=== PATIENT | male | born 1985 | race American Indian/Alaskan Native ===

== ENCOUNTER 2016-09-17 16:32 | Emergency (ER) | payer SELFPAY ==
[2016-09-17 16:54] VITALS: BP 158/95
[2016-09-17 18:10] LABS: Alanine Aminotransferase 16 units/L (7-56); Albumin 4.9 g/dL (3.9-5); Albumin/Globulin Ratio 1.4 %; Alkaline Phosphatase 49 units/L (35-129); Anion Gap 20 mmol/L; BUN/Creatinine Ratio 11.11; Blood Urea Nitrogen 10 mg/dL (9-20); Calcium 9.6 mg/dL (8.4-10.2); Carbon Dioxide 26 mmol/L (22-30); Chloride 96.5 mmol/L (98-107); Glucose 74 mg/dL (75-100); Lipase 12 units/L (13-60); Sodium 138 mmol/L (137-145); Total Protein 8.4 g/dL (6.3-8.2)
[2016-09-17 18:21] LABS: Mean Corpuscular HGB Conc 31 % (32-34); Mean Corpuscular Hemoglobin 30 pg (28-32); Mean Corpuscular Volume 95 fl (84-94); Platelet Count 178 K/mm3 (140-440); Red Blood Count 5.42 M/mm3 (3.65-5.03); Red Cell Distribution Width 14.2 % (13.2-15.2); White Blood Count 5.3 K/mm3 (4.5-11.0)
[2016-09-17 18:23] LABS: Hematocrit 51.6 % (35.5-45.6); Hemoglobin 16.1 gm/dl (11.8-15.2)
--- NOTE | 2016-09-18 10:55 | ED Elopement Review ---
ED Pt Elopement review - Results review Lab results: Laboratory Tests 09/17/16 09/17/16 17:07 17:07 WBC 5.3 RBC 5.42 H Hgb 16.1 H Hct 51.6 H MCV 95 H MCH 30 MCHC 31 L RDW 14.2 Plt Count 178 Lymph % (Auto) Acct Exec [place] % (Auto) Acct Exec Eos % (Auto) Acct Exec Baso % (Auto) Acct Exec Lymph # Acct Exec [place] # Acct Exec Eos # Acct Exec Baso # Acct Exec Seg Neutrophils % Acct Exec Seg Neutrophils # Acct Exec Sodium 138 Potassium 4.0 Chloride 96.5 L Carbon Dioxide 26 Anion Gap 20 BUN 10 Creatinine 0.9 Estimated GFR > 60 BUN/Creatinine Ratio 11.11 Glucose 74 L Calcium 9.6 Total Bilirubin 0.80 AST 22 ALT 16 Alkaline Phosphatase 49 Total Protein 8.4 H Albumin 4.9 Albumin/Globulin Ratio 1.4 Lipase 12 L - Call Back decision Pt Call Back Decision: Pt to F/U with PMD
== END 2016-09-18 02:30 | disposition left against medical advice (07) ==
LOC: ED 16:32
DX: R10.9 Unspecified abdominal pain (principal); R07.9 Chest pain, unspecified; R11.2 Nausea with vomiting, unspecified; Z53.21 Procedure and treatment not carried out due to patient leaving prior to being seen by health care provider
CPT/HCPCS: 36415; 80053; 83690; 85025

== ENCOUNTER 2016-09-18 11:26 | Emergency (ER) | payer SELFPAY ==
[2016-09-18 12:36] LABS: Basophils % (Auto) 1.3 % (0.0-1.8); Eosinophils % (Auto) 0.4 % (0.0-4.3); Hematocrit 49.8 % (35.5-45.6); Hemoglobin 16.2 gm/dl (11.8-15.2); Mean Corpuscular HGB Conc 33 % (32-34); Mean Corpuscular Hemoglobin 30 pg (28-32); Mean Corpuscular Volume 91 fl (84-94); Platelet Count 181 K/mm3 (140-440); Red Blood Count 5.46 M/mm3 (3.65-5.03); Red Cell Distribution Width 13.5 % (13.2-15.2); White Blood Count 3.7 K/mm3 (4.5-11.0)
[2016-09-18 12:49] LABS: Anion Gap 14 mmol/L; Blood Urea Nitrogen 9 mg/dL (9-20); Calcium 9.6 mg/dL (8.4-10.2); Carbon Dioxide 30 mmol/L (22-30); Chloride 96.7 mmol/L (98-107); Glucose 97 mg/dL (75-100); Potassium 4.3 mmol/L (3.6-5.0); Sodium 136 mmol/L (137-145)
[2016-09-18] MEDS ORDERED: MORPHINE IV ONE (18:55)
[2016-09-18] MEDS ORDERED: ZOFRAN IV ONE (18:55)
[2016-09-18] MEDS ORDERED: PEPCID IV ONE (18:55)
--- NOTE | 2016-09-18 19:03 | Emergency Department Report ---
HPI - General Chief Complaint: Chest Pain Time Seen by Provider: 09/18/16 18:45 - HPI HPI: Room 3 The patient is a 31-year-old male presenting with a chief complaint of chest pain. The patient states for 3 days she has had a constant substernal chest pain has been sore in nature. The patient states the pain increases whenever he becomes. Patient missed pleurisy. Patient denies shortness of breath but does admit to nausea vomiting and diaphoresis. The patient states she's been vomiting for the past 3 days yellow vomitus. The patient states today he had one episode of hematemesis immediately followed by more emesis of yellow vomitus. The patient currently gives his pain a score of 8/10. Patient states he's never had a stress test or cardiac catheterization Location: Chest Duration: 3 days Quality: Sharp/soreness Severity:8/10 Modifying factors: [see above] Context: [see above] Mode of transportation: [not driving] ED Past Medical Hx - Past Medical History Previous Medical History?: No - Surgical History Past Surgical History?: No - Family History Family history: no significant - Social History Smoking Status: Never Smoker Substance Use Type: None (denies illicit drug use) - Medications Home Medications: Home Medications Medication Instructions Recorded Confirmed Last Taken Type Famotidine [Pepcid] 20 mg PO BID #30 tablet 09/18/16 Unknown Rx ED Review of Systems ROS: Stated complaint: CHEST PAIN/VOMITING BLOOD Other details as noted in HPI Comment: All other systems reviewed and negative Constitutional: diaphoresis Eyes: denies: eye pain, eye discharge, vision change ENT: denies: ear pain, throat pain Respiratory: denies: shortness of breath Cardiovascular: chest pain Endocrine: no symptoms reported Gastrointestinal: nausea, vomiting, hematemesis Genitourinary: denies: urgency, dysuria Musculoskeletal: denies: back pain, joint swelling, arthralgia Skin: denies: rash, lesions Neurological: denies: headache, weakness, paresthesias Psychiatric: denies: anxiety, depression Hematological/Lymphatic: denies: easy bleeding, easy bruising Physical Exam - Physical Exam Vital Signs: Vital Signs 09/18/16 09/18/16 11:53 16:05 Temperature 98.1 F 98.6 F Pulse Rate 94 H 80 Respiratory 16 18 Rate Blood Pressure 156/103 Blood Pressure 187/98 [Left] O2 Sat by Pulse 100 100 Oximetry Physical Exam: GENERAL: The patient is well-developed well-nourished male lying on stretcher not appearing to be in acute distress. [] HEENT: Normocephalic. Atraumatic. Extraocular motions are intact. Patient has moist mucous membranes. NECK: Supple. Trachea midline CHEST/LUNGS: Clear to auscultation. There is no respiratory distress noted. HEART/CARDIOVASCULAR: Regular. There is no tachycardia. There is no gallop rub or murmur. ABDOMEN: Abdomen is soft, with mild discomfort to palpation in the epigastric region. Patient has normal bowel sounds. There is no abdominal distention. SKIN: There is no rash. There is no edema. There is no diaphoresis. NEURO: The patient is awake, alert, and oriented. The patient is cooperative. The patient has normal speech MUSCULOSKELETAL: There is no evidence of acute injury. ED Course Vital Signs 09/18/16 09/18/16 11:53 16:05 Temperature 98.1 F 98.6 F Pulse Rate 94 H 80 Respiratory 16 18 Rate Blood Pressure 156/103 Blood Pressure 187/98 [Left] O2 Sat by Pulse 100 100 Oximetry ED Medical Decision Making - Lab Data Result diagrams: 09/18/16 12:08 09/18/16 12:08 Laboratory Tests 09/18/16 09/18/16 09/18/16 12:08 12:08 14:17 WBC 3.7 L RBC 5.46 H Hgb 16.2 H Hct 49.8 H MCV 91 D MCH 30 MCHC 33 RDW 13.5 Plt Count 181 Lymph % (Auto) 34.5 [place] % (Auto) 5.3 Eos % (Auto) 0.4 Baso % (Auto) 1.3 Lymph # 1.3 [place] # 0.2 Eos # 0.0 Baso # 0.0 Seg Neutrophils % 58.5 Seg Neutrophils # 2.2 D-Dimer Sodium 136 L Potassium 4.3 Chloride 96.7 L Carbon Dioxide 30 Anion Gap 14 BUN 9 Creatinine 1.0 Estimated GFR > 60 BUN/Creatinine Ratio 9.00 Glucose 97 Calcium 9.6 Troponin T < 0.010 < 0.010 09/18/16 09/18/16 19:45 19:45 WBC RBC Hgb Hct MCV MCH MCHC RDW Plt Count Lymph % (Auto) [place] % (Auto) Eos % (Auto) Baso % (Auto) Lymph # [place] # Eos # Baso # Seg Neutrophils % Seg Neutrophils # D-Dimer < 135.00 Sodium Potassium Chloride Carbon Dioxide Anion Gap BUN Creatinine Estimated GFR BUN/Creatinine Ratio Glucose Calcium Troponin T < 0.010 - EKG Data -: EKG Interpreted by Me EKG shows normal: sinus rhythm Rate: normal - EKG Data When compared to previous EKG there are: previous EKG unavailable Interpretation: nonspecific ST-T wave maryam (su ST elevation, ME segment elevation in lead aVR potentially consistent with pericarditis) - Radiology Data Radiology results: image reviewed (chest x-ray) interpreted by me: Chest x-ray-no focal infiltrates, no pneumothorax - Medical Decision Making I explained to the patient given his chest pain nausea vomiting and diaphoresis the recommendation is admission to the hospital for rule out DC. Patient verbalized understanding of risk of increased morbidity and/or mortality. Patient states he would like to leave AGAINST MEDICAL ADVICE. Patient advised to return to the emergency department if he changes his mind - Differential Diagnosis pericarditis, GERD, pleurisy, PE, esophagitis, peptic ulcer disease Critical care attestation.: If time is entered above; I have spent that time in minutes in the direct care of this critically ill patient, excluding procedure time. ED Disposition Clinical Impression: Chest pain Disposition: DC-07 LEFT AGAINST MED ADVICE Is pt being admited?: No Does the pt Need Aspirin: Yes Condition: Undetermined Instructions: Chest Pain (ED) Additional Instructions: Return to the emergency department immediately should you develop worsening symptoms, fever, inability to tolerate food or liquid or any other concerns. Prescriptions: Famotidine [Pepcid] 20 mg PO BID #30 tablet Referrals: PRIMARY CAREMD [Primary Care Provider] - ESTEE BURKETT MD [Staff Physician] - JORGE (Dr. Tavera is a swing saw operator. Please follow up with him for further evaluation) Forms: AMA Form Time of Disposition: 22:10 (patient leaving AMA)
[2016-09-18 20:09] VITALS: BP 138/73
[2016-09-18] MEDS ORDERED: XYLOCAINE 1% MPF 5 mL INFILTRATI ONE (21:49)
[2016-09-18] MEDS ORDERED: ZITHROMAX PO ONE (21:49)
[2016-09-18] MEDS ORDERED: ROCEPHIN IM ONE (21:49)
[2016-09-18] MEDS ORDERED: FLAGYL PO ONE (21:49)
--- NOTE | 2016-09-19 10:28 | XRay Report ---
CHEST TWO VIEWS: 09/18/16 20:38 CLINICAL: Chest pain. COMPARISON: None FINDINGS: Normal heart and pulmonary vasculature. The lungs are normally expanded and clear.The bones and soft tissues are unremarkable. IMPRESSION: Normal chest.
== END 2016-09-18 22:35 | disposition left against medical advice (07) ==
LOC: ED 11:26
DX: R07.9 Chest pain, unspecified (principal)
CPT/HCPCS: 36415; 71020; 80048; 84484; 85025; 85379; 93005; 93010; 96372; 96374; 96375; 99285; J0696; J2270; J2405